=== PATIENT | male | born 1985 | race African-American/Black ===

== ENCOUNTER 2020-06-12 01:48 | Emergency (ER) | payer BC ==
[~2020-06-12] VITALS: Ht 188 cm; Wt 74.0 kg
[2020-06-12 03:30] LABS: BASOPHILS % (AUTO) 1 % (0-1); EOSINOPHILS % (AUTO) 4 % (1-7); LYMPHOCYTES % (AUTO) 23 % (22-44); MEAN CORPUSCULAR HEMOGLOBIN 30.8 pg (27.5-34.5); MEAN CORPUSCULAR HGB CONC 33.7 g/dL (33.2-36.2); MEAN PLATELET VOLUME 8.7 fL (7.4-10.4); MONOCYTES % (AUTO) 8 % (2-9); NEUTROPHILS % (AUTO) 64 % (42-75); PLATELET COUNT 218 x10^3/uL (130-400); RED CELL DISTRIBUTION WIDTH 13.7 % (9.4-14.8)
[2020-06-12 03:31] LABS: HCT (SEDRATE) 41.7 % (39.2-51.8)
[2020-06-12 03:34] LABS: MD NO
[2020-06-12 03:39] LABS: ANION GAP 4 mmol/L (5-15); C-REACTIVE PROTEIN, QUANT 0.06 mg/dL (0.02-0.49); CALCIUM 9.8 mg/dL (8.5-10.1); CHLORIDE 109 mmol/L (98-107)
[2020-06-12 03:43] LABS: TROPONIN I < 0.015 ng/mL (0.000-0.045)
[2020-06-12 05:10] VITALS: BP 114/71
== END 2020-06-12 05:13 | disposition home or self-care (01) ==
LOC: ED 04:50
DX: R07.89 Other chest pain (principal); Z20.828 Contact with and (suspected) exposure to other viral communicable diseases; I51.7 Cardiomegaly; R94.31 Abnormal electrocardiogram [ECG] [EKG]
CPT/HCPCS: 36415; 71045; 80048; 82040; 84484; 85025; 85651; 86140; 87635; 93005; 99285